=== PATIENT | female | born 2000 | race Caucasian/White ===

== ENCOUNTER 2022-01-16 21:32 | Emergency (ER) | payer BC ==
[2022-01-16 22:53] LABS: HEMOGLOBIN 14.6 gm/dl (12.3-15.3); RED BLOOD COUNT 5.04 M/UL (4.00-5.10); WHITE BLOOD COUNT 8.7 K/UL (4.5-11.0)
[2022-01-16 23:32] LABS: BUN/CREATININE RATIO 23 (0-10)
[2022-01-16] MEDS ORDERED: OMNICEF 300 MG300 MG PO (23:59)
== END 2022-01-17 00:39 | disposition home or self-care (01) ==
LOC: ER1 21:32
PROVIDERS: Physician Assistant
DX: N39.0 Urinary tract infection, site not specified (principal); B37.3 Candidiasis of vulva and vagina; K80.50 Calculus of bile duct without cholangitis or cholecystitis without obstruction
CPT/HCPCS: 80053; 81001; 83690; 84703; 85025; 87086; 96374; 99284; J0696; Q9967

== ENCOUNTER → 2022-01-22 | Outpatient (CLI) | payer BC ==
[~2022-01-22] MED LIST: OMNICEF 300 MG300 MG PO
== END ==
LOC: MRI 14:30
DX: K80.50 Calculus of bile duct without cholangitis or cholecystitis without obstruction (principal); K76.0 Fatty (change of) liver, not elsewhere classified
CPT/HCPCS: 36415; 74181; 80076; 82150; 83690; 85610